=== PATIENT | female | born 1995 | race Caucasian/White ===

== ENCOUNTER 2016-12-29 18:04 | Emergency (ER) | payer SELFPAY ==
[2016-12-29 18:15] VITALS: BP 117/75; BMI 22.6
[2016-12-29 19:07] LABS: BILIRUBIN,URINE NEGATIVE (NEGATIVE); BLOOD/HEMOGLOBIN,URINE 5+ (NEGATIVE); GLUCOSE, URINE NEGATIVE (NEGATIVE); KETONES,URINE NEGATIVE (NEGATIVE); LEUKOCYTE ESTERASE ,URINE 3+ (NEGATIVE); NITRITES,URINE NEGATIVE (NEGATIVE); PROTEIN,URINE 3+ (NEGATIVE); UROBILINOGEN,URINE NORMAL (NORMAL)
[2016-12-29 19:51] LABS: APPEARANCE,URINE CLOUDY (CLEAR); BACTERIA,URINE 1+ /HPF (NEGATIVE); COLOR,URINE YELLOW (YELLOW); RBC,URINE 20-30 /HPF (NEGATIVE); SQUAMOUS EPITHELIAL CELL,UR FEW /HPF (NEGATIVE); TRICHOMONAS,URINE FEW /HPF (NEGATIVE)
--- NOTE | 2016-12-29 20:00 | DR.GENAD ---
HPI - PCP Primary Care Physician: NFD - Complaint/Symptoms Chief Complaint:: For past two weeks having awful pain in private area and states her mother found blisters. Hurting really bad when urinating - Source History Provided: Patient - Mode of Arrival Mode of Arrival: Ambulatory - Timing Onset of Chief Complaint: 12/15/16 PMH - PMH Past Medical History: No Past Surgical History: No - Family History History of Family Medical Conditions: Yes Family Medical History: Diabetes Mellitus, Cancer, Coronary Artery Disease, Hypertension Family Medical History Comment: seizure - Social History Does patient currently use any type of tobacco product: Yes Have you used tobacco products in the last 12 months: Yes Type of Tobacco Use: Cigarettes How many years tobacco product used: 3 Does any household member use tobacco: Yes Alcohol Use: None Do you use any recreational Drugs:: No Lives With: Family Lives Where: Home - infectious screening In the last 2 months have you had wt loss of >10#?: YES Have you had fever, night sweats or hemotysis?: Yes Have you traveled outside the country in the last 6 months?: No Isolation: Standard ROS - Review of Systems Eyes: No Symptoms Reported ENTM: No Symptoms Reported Respiratoy: No Symptoms Reported Cardiovascular: No Symptoms Reported Gastrointestinal/Abdominal: No Symptoms Reported Genitourinary: Dysuria, Frequency, Hematuria Neurological: No Symptoms Reported Musculoskeletal: No Symptoms Reported Integumentary: No Symptoms Reported Hematologic/Lymphatic: No Symptoms Reported Endocrine: No Symptoms Reported Psychiatric: No Symptoms Reported All Other Systems: Reviewed and Negative PE - Vital Signs Vitals: Temperature 98.9 F Pulse Rate 116 Respiratory Rate 20 Blood Pressure 117/75 O2 Sat by Pulse Oximetry 95 - General Limitations: No Limitations General Appearance: Alert, In No Apparent Distress - Head Head Exam: Normal Inspection, Atraumatic - Eyes Eye exam: Normal Appearance, PERRL, EOMI - ENT ENT Exam: Normal Exam External Ear Exam: Normal External Inspection TM/Canal Exam: Bilateral Normal Nose Exam: Normal Nose Exam Mouth Exam: Normal Inspection Throat Exam: Normal Inspection - Neck Neck Exam: Normal Inspection, Full ROM - Chest Chest Inspection: Normal Inspection - Respiratory Respiratory Exam: Normal Lung Sounds Bilat Respiratory Exam: Bilateral Clear to Auscultation - Cardiovascular Cardiovascular Exam: Regular Rate, Normal Rhythm - Abdominal Exam Abdominal Exam: Normal Inspection Abdominal Tenderness: Suprapubic - Extremities Extremities Exam: Normal Inspection, Full ROM - Back Back Exam: Normal Inspection - Neurologic Neurological Exam: Alert, Oriented X3, CN II-XII Intact - Psychiatric Psychiatric Exam: Normal Affect - Skin Skin Exam: Warm, Dry, Intact ROR - Labs Reviewed Laboratory Results Reviewed?: Yes (UA 5+bld,3+leuk,80-100 wbc, tric few) Laboratory: Specimen Type Clean catch urine 12/29/16 19:01 Urine Color Yellow (YELLOW) 12/29/16 19:01 Urine Appearance Cloudy (CLEAR) 12/29/16 19:01 Urine pH 5.0 (5.0 - 8.0) 12/29/16 19:01 Ur Specific [place] 1.025 (1.000-1.030) 12/29/16 19:01 Urine Protein 3+ (NEGATIVE) 12/29/16 19:01 Urine Glucose (UA) Negative (NEGATIVE) 12/29/16 19:01 Urine Ketones Negative (NEGATIVE) 12/29/16 19:01 Urine Occult Blood 5+ (NEGATIVE) 12/29/16 19:01 Urine Nitrite Negative (NEGATIVE) 12/29/16 19:01 Urine Bilirubin Negative (NEGATIVE) 12/29/16 19:01 Urine Urobilinogen Normal (NORMAL) 12/29/16 19:01 Ur Leukocyte Esterase 3+ (NEGATIVE) 12/29/16 19:01 Urine RBC 20-30 /HPF (NEGATIVE) 12/29/16 19:01 Urine WBC 80-100 /HPF (NEGATIVE) 12/29/16 19:01 Ur Squamous Epith Cells Few /HPF (NEGATIVE) 12/29/16 19:01 Urine Bacteria 1+ /HPF (NEGATIVE) 12/29/16 19:01 Urine Trichomonas Few /HPF (NEGATIVE) 12/29/16 19:01 Ur Culture Indicated? Yes/culture set up 12/29/16 19:01 - Diagnosis Discharge Problem: Trichomoniasis, urogenital UTI (urinary tract infection) Qualifiers: Urinary tract infection type: acute cystitis Hematuria presence: with hematuria Qualified Code(s): N30.01 - Acute cystitis with hematuria - Discharge Plan Condition: Stable - Follow ups/Referrals Follow ups/Referrals: NFD,None [Primary Care Provider] - 3 days - Instructions
== END 2016-12-29 20:15 | disposition home or self-care (01) ==
LOC: ER 18:19
DX: A59.09 Other urogenital trichomoniasis (principal); N30.01 Acute cystitis with hematuria
CPT/HCPCS: 81001; 87086; 99282; 99283

== ENCOUNTER 2017-01-13 02:13 | Emergency (ER) | payer SELFPAY ==
[2017-01-13 02:22] VITALS: BP 113/76; BMI 24.2
[2017-01-13 02:49] LABS: BILIRUBIN,URINE NEGATIVE (NEGATIVE); BLOOD/HEMOGLOBIN,URINE NEGATIVE (NEGATIVE); GLUCOSE, URINE NEGATIVE (NEGATIVE); KETONES,URINE NEGATIVE (NEGATIVE); LEUKOCYTE ESTERASE ,URINE 1+ (NEGATIVE); NITRITES,URINE NEGATIVE (NEGATIVE); PH,URINE 6.5 (5.0 - 8.0); PROTEIN,URINE NEGATIVE (NEGATIVE); UROBILINOGEN,URINE NORMAL (NORMAL)
[2017-01-13 03:05] LABS: APPEARANCE,URINE SLIGHTLY HAZY (CLEAR); BACTERIA,URINE TRACE /HPF (NEGATIVE); COLOR,URINE YELLOW (YELLOW); RBC,URINE 0-3 /HPF (NEGATIVE); SQUAMOUS EPITHELIAL CELL,UR NUMEROUS /HPF (NEGATIVE)
== END 2017-01-13 03:00 | disposition left against medical advice (07) ==
LOC: ER 02:13
DX: R10.84 Generalized abdominal pain (principal)
CPT/HCPCS: 81001; 99281; 99282

== ENCOUNTER 2017-01-21 00:33 | Emergency (ER) | payer OTHER ==
[2017-01-21 00:37] VITALS: BP 127/77; BMI 22.6
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
[2017-01-21] MEDS ORDERED: ADACEL TDaP IM ONE ×2 (01:03→01:11)
[2017-01-21] MEDS ORDERED: XYLOCAINE 1% and EPINEPHRINE 1:100,000 IM ONE (01:03)
== END 2017-01-21 01:59 | disposition home or self-care (01) ==
LOC: ER 00:33
PROC: 0WQ20ZZ Repair Face, Open Approach (ICD-10-PCS; principal; 2017-01-21)
DX: S01.511A Laceration without foreign body of lip, initial encounter (principal); V89.2XXA Person injured in unspecified motor-vehicle accident, traffic, initial encounter
CPT/HCPCS: 90471; 99282

== ENCOUNTER 2017-04-17 18:10 | Emergency (ER) | payer SELFPAY ==
[2017-04-17 18:43] VITALS: BP 108/67; BMI 22.3
[2017-04-17 18:51] LABS: BILIRUBIN,URINE NEGATIVE (NEGATIVE); BLOOD/HEMOGLOBIN,URINE 4+ (NEGATIVE); GLUCOSE, URINE NEGATIVE (NEGATIVE); KETONES,URINE 1+ (NEGATIVE); LEUKOCYTE ESTERASE ,URINE 3+ (NEGATIVE); NITRITES,URINE NEGATIVE (NEGATIVE); PROTEIN,URINE 2+ (NEGATIVE); UROBILINOGEN,URINE NORMAL (NORMAL)
[2017-04-17 19:00] LABS: APPEARANCE,URINE HAZY (CLEAR); BACTERIA,URINE TRACE /HPF (NEGATIVE); COLOR,URINE YELLOW (YELLOW); SQUAMOUS EPITHELIAL CELL,UR FEW /HPF (NEGATIVE)
[2017-04-17 19:01] LABS: BASOPHILS # (AUTO) 0.1 X10^3/uL (0.0-0.1); BASOPHILS % (AUTO) 0.9 % (0.2-1.0); EOSINOPHILS # (AUTO) 0.1 x10^3/uL (0.0-0.2); EOSINOPHILS % (AUTO) 1.2 % (0.9-2.9); HEMOGLOBIN 13.5 g/dL (12.0-16.0); LYMPHOCYTES # (AUTO) 4.1 X10^3/uL (1.3-2.9); LYMPHOCYTES % (AUTO) 36.5 % (21.0-51.0); MEAN CORPUSCULAR HEMOGLOBIN 30.8 pg (27.0-34.0); MEAN CORPUSCULAR HGB CONC 33.8 g/dL (33.0-35.0); MEAN CORPUSCULAR VOLUME 91.2 fL (80.0-100.0); MEAN PLATELET VOLUME 8.1 fL (7.4-11.0); MONOCYTES # (AUTO) 0.7 x10^3/uL (0.3-0.8); NEUTROPHILS # (AUTO) 6.3 x10^3/uL (2.2-4.8); NEUTROPHILS % (AUTO) 55.4 % (42.0-75.0); PLATELET COUNT 359 X10^3/uL (150.0-450.0); RED BLOOD COUNT 4.39 X10^6/uL (3.5-5.4); RED CELL DISTRIBUTION WIDTH 13.4 % (11.6-16.5); WHITE BLOOD COUNT 11.4 X10^3/uL (3.6-10.0)
[2017-04-17 19:12] LABS: ALANINE AMINOTRANSFERASE 14 Units/L (12-78); ALBUMIN 4.2 g/dL (3.4-5.0); ALKALINE PHOSPHATASE 74 Units/L (46-116); ASPARTATE AMINO TRANSFERASE 14 Units/L (15-37); BLOOD UREA NITROGEN 7 mg/dL (7-18); CALCIUM 9.6 mg/dL (8.5-10.1); CARBON DIOXIDE 30.2 mmol/L (21-32); CHLORIDE 104 mmol/L (98-107); CREATININE 0.88 mg/dL (0.55-1.02); SERUM PREGNANCY TEST, QUAL NEGATIVE <10 mIU/mL; SODIUM 140 mmol/L (136-145); TOTAL PROTEIN 8.1 g/dL (6.4-8.2); eGFR BLACK RACES > 60 (>60); eGFR NON BLACK RACES > 60 (>60)
[2017-04-17 19:14] LABS: SALICYLATE 4.6 mg/dL (2.8-20)
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
[2017-04-17 19:20] LABS: BLOOD ALCOHOL < 3.0 mg/dL (0-19.9)
[2017-04-17] MEDS ORDERED: BACTRIM DS TAB PO ONE ×2 (20:30→20:59)
--- NOTE | 2017-04-17 21:15 | RAD ---
EXAM: Chest X-ray INDICATION: Medical clearance COMPARISION: No prior TECHNIQUE: AP, single view FINDINGS: The lungs are clear in the lung volumes are within normal limits. No pleural effusion or pneumothorax . The cardiac silhouette and mediastinum are normal. The regional skeleton is intact. IMPRESSION: Normal Chest X-Ray Reported By:
[2017-04-17] MEDS ORDERED: DUONEB 0.5 MG/3 MG NEB ONE (21:31)
== END 2017-04-18 00:38 | disposition home or self-care (01) ==
LOC: ER 18:13
DX: F12.90 Cannabis use, unspecified, uncomplicated (principal); N30.01 Acute cystitis with hematuria
CPT/HCPCS: 36415; 71010; 80053; 80307; 80320; 81001; 84703; 85025; 93005; 93010; 99285; G0434; G6038; G6039; G6040